=== PATIENT | female | born 1950 | race Caucasian/White ===

== ENCOUNTER 2018-06-17 16:24 | Inpatient (IN) | payer MEDICARE ==
[~2018-06-17] VITALS: Ht 162.6 cm; Wt 128.4 kg
[2018-06-17] MEDS ORDERED: ACET650S27 PO (16:57)
[2018-06-17] MEDS ORDERED: ASPI-1159 PO (16:58)
[2018-06-17] MEDS ORDERED: ATOR40TA70 PO (16:59)
[2018-06-17] MEDS ORDERED: CITA10TA9 PO (17:00)
[2018-06-17] MEDS ORDERED: BO1 TP (17:00)
[2018-06-17] MEDS ORDERED: DOCU-150 PO (17:01)
[2018-06-17] MEDS ORDERED: FAMO40TA7 PO (17:02)
[2018-06-17] MEDS ORDERED: HJ10 IJ (17:03)
[2018-06-17] MEDS ORDERED: LEVVL SQ (17:04)
[2018-06-17] MEDS ORDERED: IPRA3AMP31 IH (17:07)
[2018-06-17] MEDS ORDERED: LAMO300T2 PO (17:08)
[2018-06-17] MEDS ORDERED: LOSA50TA20 PO (17:12)
[2018-06-17] MEDS ORDERED: METH1TAB33 PO (17:13)
[2018-06-17] MEDS ORDERED: METH16TA3 IVP (17:14)
[2018-06-17] MEDS ORDERED: MIRA50TA PO (17:15)
[2018-06-17] MEDS ORDERED: CLONIDINE 0.1MG TABLET PO PRN (17:15)
[2018-06-17] MEDS ORDERED: DOCUSATE SODIUM 100MG CAPSULE PO PRN (17:15)
[2018-06-17] MEDS ORDERED: NYST15PO4 TP (17:17)
[2018-06-17] MEDS ORDERED: MULT1TAB22 PO (17:17)
[2018-06-17] MEDS ORDERED: TROS20TA3 PO (17:18)
[2018-06-17] MEDS ORDERED: RISP4TAB16 PO (17:22)
[2018-06-17] MEDS ORDERED: SENN8.8S8 PO (17:23)
[2018-06-17] MEDS ORDERED: SILD20TA PO (17:25)
[2018-06-17] MEDS ORDERED: THEO80SO7 PO (17:26)
[2018-06-17] MEDS ORDERED: ZINC113O4 TP (17:27)
[2018-06-17 18:33] VITALS: BP 118/70
[2018-06-17 20:00] VITALS: BP 104/59
[2018-06-17] MEDS ORDERED: FAMOTIDINE 20MG TABLET PO NR (21:00)
[2018-06-17 21:03] LABS: CLARITY URINE CLEAR (CLEAR); COLOR URINE YELLOW (YELLOW); KETONES URINE NEGATIVE (NEGATIVE); LEUKOCYTE ESTERASE URINE TRACE (NEGATIVE); NITRITE URINE NEGATIVE (NEGATIVE); OCCULT BLOOD URINE NEGATIVE (NEGATIVE); PROTEIN URINE 1+ (NEGATIVE); SPECIFIC GRAVITY URINE 1.015 (1.005-1.030); UROBILINOGEN URINE 0.2 E.U./dL (0.2-1.0)
[2018-06-17] MEDS: ACETAMINOPHEN 325MG TABLET PO PRN (21:33)
[2018-06-17] MEDS: ATORVASTATIN CALCIUM 40MG TABLET PO SCH (21:33)
[2018-06-17] MEDS: THEOPHYLLINE ANHYDROUS 80 MG/15 ML 120ML PO SCH (21:35)
[2018-06-17] MEDS ORDERED: DEXTROSE 50% WATER 50ML SYRINGE IV PRN (21:45)
[2018-06-17] MEDS: SILDENAFIL CITRATE 20MG TABLET PO SCH (21:52)
[2018-06-17] MEDS: BLOOD SUGAR DIAGNOSTIC STRIP TEST SCH (21:53)
[2018-06-17] MEDS: INSULIN LISPRO 100 UNITS/ML SUBCUT SCH (21:54)
[2018-06-17] MEDS ORDERED: INSULIN GLARGINE UD 100 UNITS/ML SYR SUBCUT SCH (22:00)
[2018-06-17] MEDS ORDERED: RISPERIDONE 1MG TABLET PO SCH (22:00)
[2018-06-17] MEDS: RISPERIDONE 1MG TABLET PO SCH (22:39)
[2018-06-18] MEDS: BLOOD SUGAR DIAGNOSTIC STRIP TEST SCH ×4 (05:55→20:51)
[2018-06-18 06:19] LABS: HEMATOCRIT. 32.8 % (36.0-48.0); HEMOGLOBIN. 11.1 g/dL (12.0-16.0); MEAN CORPUSCULAR HEMOGLOBIN 32.7 pg (28.0-32.0); MEAN CORPUSCULAR VOLUME 96.6 fL (81.0-99.0); MEAN PLATELET VOLUME 8.3 fl (7.4-10.4); PLATELET 196 x1000/uL (130-400); RED CELL DISTRIBUTION WIDTH 15.6 % (11.6-14.6)
[2018-06-18 06:24] LABS: CHLORIDE 97 mEq/L (98-107)
[2018-06-18] MEDS ORDERED: BLOOD SUGAR DIAGNOSTIC STRIP TEST SCH (06:30)
[2018-06-18] MEDS: INSULIN LISPRO 100 UNITS/ML SUBCUT SCH ×4 (06:37→20:46)
[2018-06-18] MEDS: SILDENAFIL CITRATE 20MG TABLET PO SCH ×3 (06:38→20:50)
[2018-06-18] MEDS: THEOPHYLLINE ANHYDROUS 80 MG/15 ML 120ML PO SCH ×3 (06:39→21:05)
[2018-06-18 08:00] VITALS: BP 126/85
[2018-06-18] MEDS ORDERED: INSULIN LISPRO 100 UNITS/ML SUBCUT SCH (09:00)
[2018-06-18] MEDS: LIDOCAINE 5% PATCH TOP SCH (09:00)
[2018-06-18] MEDS: DOCUSATE SODIUM 100MG CAPSULE PO SCH ×2 (09:00→17:00)
[2018-06-18] MEDS ORDERED: PREDNISONE 20MG TABLET PO SCH (09:00)
[2018-06-18] MEDS: CITALOPRAM HYDROBROMIDE 10MG TABLET PO SCH (09:44)
[2018-06-18] MEDS: LOSARTAN POTASSIUM 50 MG TABLET PO SCH (09:45)
[2018-06-18] MEDS: ASPIRIN 81MG TABLET PO SCH (09:45)
[2018-06-18] MEDS: MULTIVITAMINS,THER W-MINERALS TABLET PO SCH (09:46)
[2018-06-18] MEDS: LAMOTRIGINE 150MG TABLET PO SCH (09:46)
[2018-06-18] MEDS: FAMOTIDINE 20MG TABLET PO SCH ×2 (09:46→20:49)
[2018-06-18 10:27] LABS: PLATELET ESTIMATE NORMAL
[2018-06-18] MEDS ORDERED: FUROSEMIDE 20MG TABLET PO NR (12:45)
[2018-06-18] MEDS: INSULIN GLARGINE UD 100 UNITS/ML SYR SUBCUT SCH ×2 (12:49→21:04)
[2018-06-18] MEDS: NYSTATIN POWDER 15GM TOP SCH ×2 (17:00→18:00)
[2018-06-18 20:00] VITALS: BP 137/71
[2018-06-18] MEDS: TRAMADOL 50MG TABLET PO PRN (20:48)
[2018-06-18] MEDS: ATORVASTATIN CALCIUM 40MG TABLET PO SCH (20:48)
[2018-06-18] MEDS: LORAZEPAM 0.5MG TABLET PO PRN (20:49)
[2018-06-18] MEDS: RISPERIDONE 1MG TABLET PO SCH (20:49)
[2018-06-19] MEDS: BLOOD SUGAR DIAGNOSTIC STRIP TEST SCH ×4 (06:00→21:21)
[2018-06-19] MEDS: SILDENAFIL CITRATE 20MG TABLET PO SCH ×3 (06:00→21:21)
[2018-06-19] MEDS: THEOPHYLLINE ANHYDROUS 80 MG/15 ML 120ML PO SCH ×3 (06:00→21:22)
[2018-06-19 06:38] LABS: HEMATOCRIT. 31.8 % (36.0-48.0); HEMOGLOBIN. 10.9 g/dL (12.0-16.0); MEAN CORPUSCULAR HEMOGLOBIN 33.1 pg (28.0-32.0); MEAN CORPUSCULAR VOLUME 96.4 fL (81.0-99.0); MEAN PLATELET VOLUME 7.6 fl (7.4-10.4); PLATELET 191 x1000/uL (130-400); RED CELL DISTRIBUTION WIDTH 15.4 % (11.6-14.6)
[2018-06-19 06:58] LABS: FERRITIN 92 ng/mL (10-291)
[2018-06-19 07:02] LABS: CHLORIDE 97 mEq/L (98-107)
[2018-06-19 07:07] LABS: PHOSPHORUS 4.4 mg/dL (2.5-4.9)
[2018-06-19 07:08] LABS: LDL CHOLESTEROL 72 mg/dL (5-100)
[2018-06-19 07:09] LABS: HDL CHOLESTEROL 66 mg/dL (40-59); TOTAL IRON BINDING CAPACITY 258 ug/dL (250-450)
[2018-06-19] MEDS ORDERED: POTASSIUM CHLORIDE 20MEQ TABLET SR PO NR (08:00)
[2018-06-19] MEDS: INSULIN LISPRO 100 UNITS/ML SUBCUT SCH ×4 (08:01→21:31)
[2018-06-19 08:13] LABS: VITAMIN B12 SERUM 1618 pg/mL (211-911)
[2018-06-19 08:17] VITALS: BP 120/63
[2018-06-19 08:22] LABS: FOLIC ACID (FOLATE) SERUM > 20.00 ng/mL (>5.38)
[2018-06-19 08:33] LABS: PLATELET ESTIMATE NORMAL
[2018-06-19] MEDS: LAMOTRIGINE 150MG TABLET PO SCH (08:36)
[2018-06-19] MEDS: ASPIRIN 81MG TABLET PO SCH (08:37)
[2018-06-19] MEDS: DOCUSATE SODIUM 100MG CAPSULE PO SCH ×2 (08:37→11:12)
[2018-06-19] MEDS: CITALOPRAM HYDROBROMIDE 10MG TABLET PO SCH (08:37)
[2018-06-19] MEDS: MULTIVITAMINS,THER W-MINERALS TABLET PO SCH (08:37)
[2018-06-19] MEDS: FUROSEMIDE 20MG TABLET PO SCH (08:37)
[2018-06-19] MEDS: PREDNISONE 20MG TABLET PO SCH (08:37)
[2018-06-19] MEDS: LOSARTAN POTASSIUM 50 MG TABLET PO SCH (08:37)
[2018-06-19] MEDS: FAMOTIDINE 20MG TABLET PO SCH ×2 (08:37→21:21)
[2018-06-19] MEDS: NYSTATIN POWDER 15GM TOP SCH ×5 (08:38→17:00)
[2018-06-19] MEDS: LIDOCAINE 5% PATCH TOP SCH (08:38)
[2018-06-19] MEDS: ACETAMINOPHEN 325MG TABLET PO PRN ×2 (08:46→22:25)
[2018-06-19] MEDS: BUDESONIDE 0.5MG/2ML NEB HHN SCH (09:55)
[2018-06-19] MEDS ORDERED: MAGNESIUM OXIDE 400MG TABLET PO NR (10:15)
[2018-06-19] MEDS ORDERED: MAGNESIUM 2 G PREMIX 50 ML IV ONE (10:15)
[2018-06-19] MEDS: INSULIN GLARGINE UD 100 UNITS/ML SYR SUBCUT SCH ×2 (10:29→21:22)
[2018-06-19] MEDS: MYRBETRIQ 50 MG PO SCH (17:00)
[2018-06-19 20:00] VITALS: BP 104/55
[2018-06-19] MEDS: MUPIROCIN 2% OINT 22GM NS SCH (21:20)
[2018-06-19] MEDS: RISPERIDONE 1MG TABLET PO SCH (21:21)
[2018-06-19] MEDS: ATORVASTATIN CALCIUM 40MG TABLET PO SCH (21:21)
[2018-06-19] MEDS: LORAZEPAM 0.5MG TABLET PO PRN (23:02)
[2018-06-20] MEDS: THEOPHYLLINE ANHYDROUS 80 MG/15 ML 120ML PO SCH ×3 (06:00→21:34)
[2018-06-20] MEDS: BLOOD SUGAR DIAGNOSTIC STRIP TEST SCH ×4 (06:59→21:33)
[2018-06-20] MEDS: SILDENAFIL CITRATE 20MG TABLET PO SCH ×3 (06:59→21:00)
[2018-06-20] MEDS: INSULIN LISPRO 100 UNITS/ML SUBCUT SCH ×4 (07:00→21:48)
[2018-06-20 08:00] VITALS: BP 134/62
[2018-06-20] MEDS: LIDOCAINE 5% PATCH TOP SCH (09:00)
[2018-06-20] MEDS: IPRATROPIUM/ALBUTEROL 0.5-3(2.5)MG/3ML NEB INH PRN ×2 (09:16→20:05)
[2018-06-20] MEDS: BUDESONIDE 0.5MG/2ML NEB HHN SCH ×2 (09:17→20:05)
[2018-06-20] MEDS: MUPIROCIN 2% OINT 22GM NS SCH ×2 (09:34→21:00)
[2018-06-20] MEDS: MYRBETRIQ 50 MG PO SCH (09:34)
[2018-06-20] MEDS: DOCUSATE SODIUM 100MG CAPSULE PO SCH ×2 (09:35→16:58)
[2018-06-20] MEDS: CITALOPRAM HYDROBROMIDE 10MG TABLET PO SCH (09:35)
[2018-06-20] MEDS: ASPIRIN 81MG TABLET PO SCH (09:35)
[2018-06-20] MEDS: NYSTATIN POWDER 15GM TOP SCH ×5 (09:35→16:58)
[2018-06-20] MEDS: FAMOTIDINE 20MG TABLET PO SCH ×2 (09:35→21:00)
[2018-06-20] MEDS: PREDNISONE 20MG TABLET PO SCH (09:35)
[2018-06-20] MEDS: LOSARTAN POTASSIUM 50 MG TABLET PO SCH (09:35)
[2018-06-20] MEDS: MULTIVITAMINS,THER W-MINERALS TABLET PO SCH (09:35)
[2018-06-20] MEDS: LAMOTRIGINE 150MG TABLET PO SCH (09:35)
[2018-06-20] MEDS: FUROSEMIDE 20MG TABLET PO SCH (09:36)
[2018-06-20] MEDS: INSULIN GLARGINE UD 100 UNITS/ML SYR SUBCUT SCH ×2 (10:20→21:48)
[2018-06-20 12:25] VITALS: BP_SYST 101; BP_SYST 107; BP_SYST 132; BP_DIAS 55; BP_DIAS 56; BP_DIAS 64
[2018-06-20 20:00] VITALS: BP_SYST 111; BP_DIAS 52; BP_DIAS 56
[2018-06-20] MEDS: RISPERIDONE 1MG TABLET PO SCH (20:59)
[2018-06-20] MEDS: ATORVASTATIN CALCIUM 40MG TABLET PO SCH (21:00)
[2018-06-20] MEDS: ENOXAPARIN 40MG/0.4ML SYR SUBCUT SCH (21:00)
[2018-06-20] MEDS: ACETAMINOPHEN 325MG TABLET PO PRN (21:01)
[2018-06-20] MEDS: LORAZEPAM 0.5MG TABLET PO PRN (22:29)
[2018-06-21] MEDS: THEOPHYLLINE ANHYDROUS 80 MG/15 ML 120ML PO SCH ×3 (05:33→21:40)
[2018-06-21] MEDS: SILDENAFIL CITRATE 20MG TABLET PO SCH ×3 (05:33→21:40)
[2018-06-21] MEDS: BLOOD SUGAR DIAGNOSTIC STRIP TEST SCH ×4 (06:24→22:00)
[2018-06-21] MEDS: INSULIN LISPRO 100 UNITS/ML SUBCUT SCH ×4 (06:24→22:10)
[2018-06-21 07:44] LABS: HEMATOCRIT. 29.6 % (36.0-48.0); MEAN CORPUSCULAR HEMOGLOBIN 32.8 pg (28.0-32.0); MEAN CORPUSCULAR VOLUME 96.9 fL (81.0-99.0); MEAN PLATELET VOLUME 7.9 fl (7.4-10.4); PLATELET 189 x1000/uL (130-400); RED BLOOD CELL COUNT 3.05 mill/uL (4.2-5.4); RED CELL DISTRIBUTION WIDTH 15.2 % (11.6-14.6)
[2018-06-21 07:56] LABS: CHLORIDE 95 mEq/L (98-107)
[2018-06-21 08:05] LABS: PHOSPHORUS 3.7 mg/dL (2.5-4.9)
[2018-06-21 08:24] VITALS: BP_SYST 89; BP_SYST 99; BP_DIAS 50; BP_DIAS 52
[2018-06-21] MEDS: FUROSEMIDE 20MG TABLET PO SCH (08:29)
[2018-06-21] MEDS: LOSARTAN POTASSIUM 50 MG TABLET PO SCH (08:29)
[2018-06-21] MEDS: DOCUSATE SODIUM 100MG CAPSULE PO SCH ×2 (08:33→17:24)
[2018-06-21] MEDS: LIDOCAINE 5% PATCH TOP SCH (08:33)
[2018-06-21] MEDS: NYSTATIN POWDER 15GM TOP SCH ×2 (09:00→17:31)
[2018-06-21] MEDS: MYRBETRIQ 50 MG PO SCH (09:46)
[2018-06-21] MEDS: MUPIROCIN 2% OINT 22GM NS SCH ×2 (09:46→21:42)
[2018-06-21] MEDS: ASPIRIN 81MG TABLET PO SCH (09:47)
[2018-06-21] MEDS: CITALOPRAM HYDROBROMIDE 10MG TABLET PO SCH (09:47)
[2018-06-21] MEDS: LAMOTRIGINE 150MG TABLET PO SCH (09:47)
[2018-06-21] MEDS: PREDNISONE 20MG TABLET PO SCH (09:47)
[2018-06-21] MEDS: FAMOTIDINE 20MG TABLET PO SCH ×2 (09:47→21:24)
[2018-06-21] MEDS: MULTIVITAMINS,THER W-MINERALS TABLET PO SCH (09:47)
[2018-06-21] MEDS: ENOXAPARIN 40MG/0.4ML SYR SUBCUT SCH ×2 (09:48→21:25)
[2018-06-21] MEDS: IPRATROPIUM/ALBUTEROL 0.5-3(2.5)MG/3ML NEB INH PRN (09:55)
[2018-06-21] MEDS: POTASSIUM CHLORIDE 20MEQ TABLET SR PO SCH (10:11)
[2018-06-21] MEDS: ACETAMINOPHEN 325MG TABLET PO PRN ×2 (10:11→21:24)
[2018-06-21] MEDS: INSULIN GLARGINE UD 100 UNITS/ML SYR SUBCUT SCH ×2 (11:06→22:09)
[2018-06-21 20:00] VITALS: BP_SYST 147; BP_SYST 157; BP_DIAS 71; BP_DIAS 79
[2018-06-21 21:14] LABS: PLATELET ESTIMATE NORMAL
[2018-06-21] MEDS: RISPERIDONE 1MG TABLET PO SCH (21:24)
[2018-06-21] MEDS: ATORVASTATIN CALCIUM 40MG TABLET PO SCH (21:24)
[2018-06-21] MEDS: LORAZEPAM 0.5MG TABLET PO PRN (22:16)
[2018-06-22 06:07] LABS: HEMATOCRIT. 29.6 % (36.0-48.0); HEMOGLOBIN. 10.1 g/dL (12.0-16.0); MEAN CORPUSCULAR HEMOGLOBIN 32.8 pg (28.0-32.0); MEAN CORPUSCULAR VOLUME 96.5 fL (81.0-99.0); MEAN PLATELET VOLUME 7.5 fl (7.4-10.4); PLATELET 201 x1000/uL (130-400); RED BLOOD CELL COUNT 3.07 mill/uL (4.2-5.4); RED CELL DISTRIBUTION WIDTH 14.9 % (11.6-14.6)
[2018-06-22] MEDS: THEOPHYLLINE ANHYDROUS 80 MG/15 ML 120ML PO SCH ×3 (06:25→22:56)
[2018-06-22] MEDS: SILDENAFIL CITRATE 20MG TABLET PO SCH ×3 (06:25→22:31)
[2018-06-22] MEDS: BLOOD SUGAR DIAGNOSTIC STRIP TEST SCH ×4 (06:49→21:00)
[2018-06-22] MEDS: BUDESONIDE 0.5MG/2ML NEB HHN SCH ×2 (07:17→20:49)
[2018-06-22 07:24] LABS: CHLORIDE 99 mEq/L (98-107)
[2018-06-22 08:00] VITALS: BP_SYST 110; BP_SYST 126; BP_DIAS 50; BP_DIAS 53
[2018-06-22] MEDS: LIDOCAINE 5% PATCH TOP SCH (09:00)
[2018-06-22] MEDS: INSULIN LISPRO 100 UNITS/ML SUBCUT SCH ×4 (09:00→21:00)
[2018-06-22] MEDS: POTASSIUM CHLORIDE 20MEQ TABLET SR PO SCH (09:50)
[2018-06-22] MEDS: LAMOTRIGINE 150MG TABLET PO SCH (09:50)
[2018-06-22] MEDS: CITALOPRAM HYDROBROMIDE 10MG TABLET PO SCH (09:50)
[2018-06-22] MEDS: LOSARTAN POTASSIUM 50 MG TABLET PO SCH (09:50)
[2018-06-22] MEDS: FAMOTIDINE 20MG TABLET PO SCH ×2 (09:50→22:31)
[2018-06-22] MEDS: MULTIVITAMINS,THER W-MINERALS TABLET PO SCH (09:50)
[2018-06-22] MEDS: FUROSEMIDE 20MG TABLET PO SCH (09:50)
[2018-06-22] MEDS: DOCUSATE SODIUM 100MG CAPSULE PO SCH ×2 (09:51→17:40)
[2018-06-22] MEDS: MYRBETRIQ 50 MG PO SCH (09:51)
[2018-06-22] MEDS: ASPIRIN 81MG TABLET PO SCH (09:51)
[2018-06-22] MEDS: ENOXAPARIN 40MG/0.4ML SYR SUBCUT SCH ×2 (09:51→23:32)
[2018-06-22] MEDS: MUPIROCIN 2% OINT 22GM NS SCH ×2 (09:52→22:54)
[2018-06-22] MEDS: NYSTATIN POWDER 15GM TOP SCH ×2 (09:52→17:49)
[2018-06-22] MEDS: PREDNISONE 20MG TABLET PO SCH (09:52)
[2018-06-22] MEDS ORDERED: POTASSIUM CHLORIDE 20MEQ TABLET SR PO SCH (11:15)
[2018-06-22 12:07] LABS: PLATELET ESTIMATE NORMAL
[2018-06-22] MEDS: INSULIN GLARGINE UD 100 UNITS/ML SYR SUBCUT SCH (12:19)
[2018-06-22] MEDS ORDERED: TRAMADOL 50MG TABLET PO PRN (12:45)
[2018-06-22] MEDS: LACTULOSE 20G/30ML UDC PO SCH ×3 (14:30→21:00)
[2018-06-22] MEDS: CEFTRIAXONE 1 G PREMIX 50 ML IV SCH (14:46)
[2018-06-22] MEDS ORDERED: DOCUSATE SODIUM 100MG CAPSULE PO SCH (17:00)
[2018-06-22 20:00] VITALS: BP 130/59
[2018-06-22] MEDS: POLYETHYLENE GLYCOL 3350 (17GM) 1 DOSE PACK PO SCH (21:00)
[2018-06-22] MEDS ORDERED: INSULIN GLARGINE UD 100 UNITS/ML SYR SUBCUT SCH (22:00)
[2018-06-22] MEDS: ACETAMINOPHEN 325MG TABLET PO PRN ×2 (22:29→23:43)
[2018-06-22] MEDS: ATORVASTATIN CALCIUM 40MG TABLET PO SCH (22:31)
[2018-06-22] MEDS: RISPERIDONE 1MG TABLET PO SCH (22:55)
[2018-06-23 04:10] LABS: 25-HYDROXY VITAMIN D3 32 ng/mL (.)
[2018-06-23 05:23] LABS: HEMATOCRIT. 29.7 % (36.0-48.0); HEMOGLOBIN. 10.3 g/dL (12.0-16.0); MEAN CORPUSCULAR HEMOGLOBIN 33.5 pg (28.0-32.0); MEAN PLATELET VOLUME 8.9 fl (7.4-10.4); PLATELET 194 x1000/uL (130-400); RED BLOOD CELL COUNT 3.06 mill/uL (4.2-5.4); RED CELL DISTRIBUTION WIDTH 15.2 % (11.6-14.6)
[2018-06-23] MEDS: THEOPHYLLINE ANHYDROUS 80 MG/15 ML 120ML PO SCH ×3 (06:00→22:57)
[2018-06-23] MEDS: BLOOD SUGAR DIAGNOSTIC STRIP TEST SCH ×4 (06:56→21:00)
[2018-06-23] MEDS: SILDENAFIL CITRATE 20MG TABLET PO SCH ×3 (07:05→22:44)
[2018-06-23 07:10] LABS: CHLORIDE 98 mEq/L (98-107)
[2018-06-23] MEDS: BUDESONIDE 0.5MG/2ML NEB HHN SCH ×2 (07:17→20:18)
[2018-06-23] MEDS: IPRATROPIUM/ALBUTEROL 0.5-3(2.5)MG/3ML NEB INH PRN (07:17)
[2018-06-23 08:00] VITALS: BP 107/37
[2018-06-23] MEDS: INSULIN LISPRO 100 UNITS/ML SUBCUT SCH ×4 (09:00→22:56)
[2018-06-23] MEDS: LIDOCAINE 5% PATCH TOP SCH ×2 (09:00→09:40)
[2018-06-23] MEDS ORDERED: PREDNISONE 20MG TABLET PO SCH (09:00)
[2018-06-23] MEDS: CITALOPRAM HYDROBROMIDE 10MG TABLET PO SCH (09:27)
[2018-06-23] MEDS: POTASSIUM CHLORIDE 20MEQ TABLET SR PO SCH (09:27)
[2018-06-23] MEDS: MULTIVITAMINS,THER W-MINERALS TABLET PO SCH (09:27)
[2018-06-23] MEDS: DOCUSATE SODIUM 100MG CAPSULE PO SCH ×2 (09:27→17:00)
[2018-06-23] MEDS: FUROSEMIDE 20MG TABLET PO SCH (09:28)
[2018-06-23] MEDS: LAMOTRIGINE 150MG TABLET PO SCH (09:28)
[2018-06-23] MEDS: FAMOTIDINE 20MG TABLET PO SCH ×2 (09:29→22:43)
[2018-06-23] MEDS: ENOXAPARIN 40MG/0.4ML SYR SUBCUT SCH ×2 (09:29→22:43)
[2018-06-23] MEDS: LOSARTAN POTASSIUM 50 MG TABLET PO SCH (09:29)
[2018-06-23] MEDS: MUPIROCIN 2% OINT 22GM NS SCH ×2 (09:40→17:11)
[2018-06-23] MEDS: NYSTATIN POWDER 15GM TOP SCH ×2 (09:40→17:12)
[2018-06-23] MEDS: ASPIRIN 81MG TABLET PO SCH (09:41)
[2018-06-23] MEDS: MYRBETRIQ 50 MG PO SCH (09:41)
[2018-06-23] MEDS ORDERED: INSULIN GLARGINE UD 100 UNITS/ML SYR SUBCUT SCH (10:00)
[2018-06-23 10:31] LABS: NUCLEATED RED BLOOD CELLS 1 /100 WBC; PLATELET ESTIMATE NORMAL
[2018-06-23] MEDS: CEFTRIAXONE 1 G PREMIX 50 ML IV SCH (13:23)
[2018-06-23] MEDS ORDERED: ERGOCALCIFEROL 50000UNITS CAPSULE PO SCH (16:30)
[2018-06-23] MEDS: TROSPIUM CHLORIDE 20 MG TABLET PO SCH (17:11)
[2018-06-23] MEDS: METHENAMINE HIPPURATE 1 GM TABLET PO SCH (17:12)
[2018-06-23 20:00] VITALS: BP 133/52
[2018-06-23] MEDS: POLYETHYLENE GLYCOL 3350 (17GM) 1 DOSE PACK PO SCH (21:00)
[2018-06-23] MEDS: ATORVASTATIN CALCIUM 40MG TABLET PO SCH (22:43)
[2018-06-23] MEDS: RISPERIDONE 1MG TABLET PO SCH (22:44)
[2018-06-23] MEDS: TRAMADOL 50MG TABLET PO PRN (22:46)
[2018-06-23] MEDS: INSULIN GLARGINE UD 100 UNITS/ML SYR SUBCUT SCH (22:57)
[2018-06-23] MEDS: ACETAMINOPHEN 325MG TABLET PO PRN (23:18)
[2018-06-24 06:23] LABS: HEMATOCRIT. 31.4 % (36.0-48.0); HEMOGLOBIN. 10.7 g/dL (12.0-16.0); MEAN CORPUSCULAR HEMOGLOBIN 33.1 pg (28.0-32.0); MEAN CORPUSCULAR VOLUME 97.2 fL (81.0-99.0); MEAN PLATELET VOLUME 7.7 fl (7.4-10.4); PLATELET 219 x1000/uL (130-400); RED BLOOD CELL COUNT 3.23 mill/uL (4.2-5.4); RED CELL DISTRIBUTION WIDTH 15.1 % (11.6-14.6)
[2018-06-24] MEDS: BLOOD SUGAR DIAGNOSTIC STRIP TEST SCH ×4 (06:30→21:02)
[2018-06-24 06:52] LABS: CHLORIDE 97 mEq/L (98-107)
[2018-06-24] MEDS: SILDENAFIL CITRATE 20MG TABLET PO SCH ×3 (06:59→21:38)
[2018-06-24] MEDS: THEOPHYLLINE ANHYDROUS 80 MG/15 ML 120ML PO SCH ×3 (07:04→22:27)
[2018-06-24] MEDS: BUDESONIDE 0.5MG/2ML NEB HHN SCH ×2 (07:42→21:38)
[2018-06-24] MEDS: IPRATROPIUM/ALBUTEROL 0.5-3(2.5)MG/3ML NEB INH PRN (07:42)
[2018-06-24 08:00] VITALS: BP 132/62
[2018-06-24] MEDS: DOCUSATE SODIUM 100MG CAPSULE PO SCH ×2 (08:29→17:36)
[2018-06-24] MEDS: ASPIRIN 81MG TABLET PO SCH (08:29)
[2018-06-24] MEDS: CITALOPRAM HYDROBROMIDE 10MG TABLET PO SCH (08:29)
[2018-06-24] MEDS: LOSARTAN POTASSIUM 50 MG TABLET PO SCH (08:29)
[2018-06-24] MEDS: POTASSIUM CHLORIDE 20MEQ TABLET SR PO SCH (08:29)
[2018-06-24] MEDS: FAMOTIDINE 20MG TABLET PO SCH ×2 (08:29→21:01)
[2018-06-24] MEDS: MULTIVITAMINS,THER W-MINERALS TABLET PO SCH (08:29)
[2018-06-24] MEDS: ENOXAPARIN 40MG/0.4ML SYR SUBCUT SCH ×2 (08:29→21:02)
[2018-06-24] MEDS: FUROSEMIDE 20MG TABLET PO SCH (08:30)
[2018-06-24] MEDS: LAMOTRIGINE 150MG TABLET PO SCH (08:30)
[2018-06-24] MEDS: NYSTATIN POWDER 15GM TOP SCH ×2 (08:31→17:37)
[2018-06-24] MEDS: METHENAMINE HIPPURATE 1 GM TABLET PO SCH ×2 (08:31→17:37)
[2018-06-24] MEDS: MYRBETRIQ 50 MG PO SCH (08:31)
[2018-06-24] MEDS: MUPIROCIN 2% OINT 22GM NS SCH (08:31)
[2018-06-24] MEDS: TROSPIUM CHLORIDE 20 MG TABLET PO SCH ×2 (08:32→17:36)
[2018-06-24] MEDS: LIDOCAINE 5% PATCH TOP SCH (09:00)
[2018-06-24] MEDS: INSULIN LISPRO 100 UNITS/ML SUBCUT SCH ×3 (09:00→21:00)
[2018-06-24 09:20] LABS: PLATELET ESTIMATE NORMAL
[2018-06-24] MEDS: INSULIN GLARGINE UD 100 UNITS/ML SYR SUBCUT SCH ×2 (10:39→22:20)
[2018-06-24 14:00] VITALS: BP 153/72
[2018-06-24] MEDS: CEFTRIAXONE 1 G PREMIX 50 ML IV SCH (14:35)
[2018-06-24 20:00] VITALS: BP 116/86
[2018-06-24] MEDS: POLYETHYLENE GLYCOL 3350 (17GM) 1 DOSE PACK PO SCH (21:00)
[2018-06-24] MEDS: ATORVASTATIN CALCIUM 40MG TABLET PO SCH (21:00)
[2018-06-24] MEDS: RISPERIDONE 1MG TABLET PO SCH (21:01)
[2018-06-24] MEDS: ACETAMINOPHEN 325MG TABLET PO PRN ×2 (21:38→22:29)
[2018-06-25] MEDS: SILDENAFIL CITRATE 20MG TABLET PO SCH ×3 (05:42→22:15)
[2018-06-25] MEDS: THEOPHYLLINE ANHYDROUS 80 MG/15 ML 120ML PO SCH ×3 (05:43→22:42)
[2018-06-25 06:01] LABS: CLARITY URINE CLEAR (CLEAR); COLOR URINE YELLOW (YELLOW); KETONES URINE NEGATIVE (NEGATIVE); LEUKOCYTE ESTERASE URINE NEGATIVE (NEGATIVE); NITRITE URINE NEGATIVE (NEGATIVE); OCCULT BLOOD URINE NEGATIVE (NEGATIVE); PH URINE 5.5 (4.5-8.0); PROTEIN URINE NEGATIVE (NEGATIVE); SPECIFIC GRAVITY URINE 1.006 (1.005-1.030); UROBILINOGEN URINE 0.2 E.U./dL (0.2-1.0)
[2018-06-25 06:49] LABS: HEMATOCRIT. 31.5 % (36.0-48.0); HEMOGLOBIN. 10.5 g/dL (12.0-16.0); MEAN CORPUSCULAR HEMOGLOBIN 32.7 pg (28.0-32.0); MEAN CORPUSCULAR VOLUME 97.8 fL (81.0-99.0); MEAN PLATELET VOLUME 7.7 fl (7.4-10.4); PLATELET 214 x1000/uL (130-400); RED BLOOD CELL COUNT 3.22 mill/uL (4.2-5.4); RED CELL DISTRIBUTION WIDTH 15.1 % (11.6-14.6)
[2018-06-25 06:51] LABS: CHLORIDE 95 mEq/L (98-107)
[2018-06-25] MEDS: BLOOD SUGAR DIAGNOSTIC STRIP TEST SCH ×4 (07:18→21:00)
[2018-06-25] MEDS: INSULIN LISPRO 100 UNITS/ML SUBCUT SCH ×4 (07:23→21:00)
[2018-06-25 07:59] VITALS: BP 138/74
[2018-06-25] MEDS ORDERED: POTASSIUM CHLORIDE 20MEQ TABLET SR PO NR (08:15)
[2018-06-25] MEDS: MYRBETRIQ 50 MG PO SCH (08:38)
[2018-06-25] MEDS: METHENAMINE HIPPURATE 1 GM TABLET PO SCH ×2 (08:38→16:54)
[2018-06-25] MEDS: ENOXAPARIN 40MG/0.4ML SYR SUBCUT SCH ×2 (08:39→22:16)
[2018-06-25] MEDS: FAMOTIDINE 20MG TABLET PO SCH ×2 (08:40→22:14)
[2018-06-25] MEDS: POTASSIUM CHLORIDE 20MEQ TABLET SR PO SCH (08:40)
[2018-06-25] MEDS: ASPIRIN 81MG TABLET PO SCH (08:40)
[2018-06-25] MEDS: CITALOPRAM HYDROBROMIDE 10MG TABLET PO SCH (08:40)
[2018-06-25] MEDS: DOCUSATE SODIUM 100MG CAPSULE PO SCH ×2 (08:40→17:00)
[2018-06-25] MEDS: FUROSEMIDE 20MG TABLET PO SCH (08:40)
[2018-06-25] MEDS: LAMOTRIGINE 150MG TABLET PO SCH (08:40)
[2018-06-25] MEDS: MULTIVITAMINS,THER W-MINERALS TABLET PO SCH (08:40)
[2018-06-25] MEDS: LOSARTAN POTASSIUM 50 MG TABLET PO SCH (08:40)
[2018-06-25] MEDS: LIDOCAINE 5% PATCH TOP SCH (08:41)
[2018-06-25] MEDS: NYSTATIN POWDER 15GM TOP SCH ×2 (08:43→16:53)
[2018-06-25] MEDS: TROSPIUM CHLORIDE 20 MG TABLET PO SCH ×2 (09:00→18:52)
[2018-06-25 09:16] LABS: NUCLEATED RED BLOOD CELLS 1 /100 WBC; PLATELET ESTIMATE NORMAL
[2018-06-25] MEDS: INSULIN GLARGINE UD 100 UNITS/ML SYR SUBCUT SCH ×2 (10:21→22:16)
[2018-06-25] MEDS: BUDESONIDE 0.5MG/2ML NEB HHN SCH (12:02)
[2018-06-25] MEDS: IPRATROPIUM/ALBUTEROL 0.5-3(2.5)MG/3ML NEB INH PRN (12:02)
[2018-06-25] MEDS: CEFTRIAXONE 1 G PREMIX 50 ML IV SCH (13:11)
[2018-06-25] MEDS ORDERED: POTASSIUM CHLORIDE 20MEQ TABLET SR PO SCH (13:30)
[2018-06-25 20:00] VITALS: BP 103/54
[2018-06-25] MEDS: POLYETHYLENE GLYCOL 3350 (17GM) 1 DOSE PACK PO SCH (21:00)
[2018-06-25] MEDS: ATORVASTATIN CALCIUM 40MG TABLET PO SCH (22:14)
[2018-06-25] MEDS: RISPERIDONE 1MG TABLET PO SCH (22:15)
[2018-06-25] MEDS: ACETAMINOPHEN 325MG TABLET PO PRN (22:37)
[2018-06-26] MEDS: BLOOD SUGAR DIAGNOSTIC STRIP TEST SCH ×4 (05:59→21:00)
[2018-06-26] MEDS: THEOPHYLLINE ANHYDROUS 80 MG/15 ML 120ML PO SCH ×3 (06:00→22:00)
[2018-06-26] MEDS: SILDENAFIL CITRATE 20MG TABLET PO SCH ×3 (06:19→22:45)
[2018-06-26] MEDS: INSULIN LISPRO 100 UNITS/ML SUBCUT SCH ×4 (06:20→21:00)
[2018-06-26 07:52] VITALS: BP 110/54
[2018-06-26] MEDS: IPRATROPIUM/ALBUTEROL 0.5-3(2.5)MG/3ML NEB INH PRN (08:34)
[2018-06-26] MEDS: LIDOCAINE 5% PATCH TOP SCH (09:00)
[2018-06-26] MEDS: DOCUSATE SODIUM 100MG CAPSULE PO SCH ×2 (09:00→17:02)
[2018-06-26] MEDS: LOSARTAN POTASSIUM 50 MG TABLET PO SCH (09:00)
[2018-06-26 09:07] LABS: HEMATOCRIT. 30.6 % (36.0-48.0); HEMOGLOBIN. 10.3 g/dL (12.0-16.0); MEAN CORPUSCULAR HEMOGLOBIN 33.2 pg (28.0-32.0); MEAN CORPUSCULAR VOLUME 98.2 fL (81.0-99.0); MEAN PLATELET VOLUME 7.7 fl (7.4-10.4); PLATELET 212 x1000/uL (130-400); RED BLOOD CELL COUNT 3.11 mill/uL (4.2-5.4); RED CELL DISTRIBUTION WIDTH 15.9 % (11.6-14.6)
[2018-06-26 09:20] LABS: CHLORIDE 98 mEq/L (98-107)
[2018-06-26] MEDS: MULTIVITAMINS,THER W-MINERALS TABLET PO SCH (09:22)
[2018-06-26] MEDS: POTASSIUM CHLORIDE 20MEQ TABLET SR PO SCH (09:22)
[2018-06-26] MEDS: FAMOTIDINE 20MG TABLET PO SCH ×2 (09:22→23:28)
[2018-06-26] MEDS: CITALOPRAM HYDROBROMIDE 10MG TABLET PO SCH (09:22)
[2018-06-26] MEDS: FUROSEMIDE 20MG TABLET PO SCH (09:22)
[2018-06-26] MEDS: ASPIRIN 81MG TABLET PO SCH (09:22)
[2018-06-26] MEDS: LAMOTRIGINE 150MG TABLET PO SCH (09:22)
[2018-06-26] MEDS: METHENAMINE HIPPURATE 1 GM TABLET PO SCH ×2 (09:23→17:03)
[2018-06-26] MEDS: MYRBETRIQ 50 MG PO SCH (09:23)
[2018-06-26] MEDS: TROSPIUM CHLORIDE 20 MG TABLET PO SCH ×2 (09:23→17:03)
[2018-06-26 09:25] LABS: PHOSPHORUS 3.8 mg/dL (2.5-4.9)
[2018-06-26 09:32] LABS: PLATELET ESTIMATE NORMAL
[2018-06-26] MEDS: NYSTATIN POWDER 15GM TOP SCH ×2 (09:59→17:04)
[2018-06-26] MEDS: ENOXAPARIN 40MG/0.4ML SYR SUBCUT SCH ×2 (09:59→23:38)
[2018-06-26] MEDS: INSULIN GLARGINE UD 100 UNITS/ML SYR SUBCUT SCH ×2 (10:56→23:22)
[2018-06-26] MEDS: CEFTRIAXONE 1 G PREMIX 50 ML IV SCH (13:04)
[2018-06-26 20:00] VITALS: BP 103/42
[2018-06-26] MEDS: POLYETHYLENE GLYCOL 3350 (17GM) 1 DOSE PACK PO SCH (21:00)
[2018-06-26] MEDS: ATORVASTATIN CALCIUM 40MG TABLET PO SCH (22:45)
[2018-06-26] MEDS: ACETAMINOPHEN 325MG TABLET PO PRN (23:25)
[2018-06-26] MEDS: RISPERIDONE 1MG TABLET PO SCH (23:28)
[2018-06-27] MEDS: SILDENAFIL CITRATE 20MG TABLET PO SCH ×3 (05:30→21:30)
[2018-06-27] MEDS: THEOPHYLLINE ANHYDROUS 80 MG/15 ML 120ML PO SCH ×3 (06:00→22:08)
[2018-06-27] MEDS: BLOOD SUGAR DIAGNOSTIC STRIP TEST SCH ×4 (06:30→21:00)
[2018-06-27 08:44] VITALS: BP 132/62
[2018-06-27] MEDS: INSULIN LISPRO 100 UNITS/ML SUBCUT SCH ×4 (08:50→21:00)
[2018-06-27] MEDS: MULTIVITAMINS,THER W-MINERALS TABLET PO SCH (09:00)
[2018-06-27] MEDS: LIDOCAINE 5% PATCH TOP SCH (09:00)
[2018-06-27] MEDS: ASPIRIN 81MG TABLET PO SCH (09:29)
[2018-06-27] MEDS: FAMOTIDINE 20MG TABLET PO SCH ×2 (09:30→21:21)
[2018-06-27] MEDS: POTASSIUM CHLORIDE 20MEQ TABLET SR PO SCH (09:30)
[2018-06-27] MEDS: FUROSEMIDE 20MG TABLET PO SCH (09:30)
[2018-06-27] MEDS: DOCUSATE SODIUM 100MG CAPSULE PO SCH ×2 (09:30→16:39)
[2018-06-27] MEDS: LAMOTRIGINE 150MG TABLET PO SCH (09:30)
[2018-06-27] MEDS: CITALOPRAM HYDROBROMIDE 10MG TABLET PO SCH (09:30)
[2018-06-27] MEDS: LOSARTAN POTASSIUM 50 MG TABLET PO SCH (09:30)
[2018-06-27] MEDS: ENOXAPARIN 40MG/0.4ML SYR SUBCUT SCH ×2 (09:40→21:22)
[2018-06-27] MEDS: METHENAMINE HIPPURATE 1 GM TABLET PO SCH ×2 (09:44→16:40)
[2018-06-27] MEDS: MYRBETRIQ 50 MG PO SCH (09:45)
[2018-06-27] MEDS: TROSPIUM CHLORIDE 20 MG TABLET PO SCH ×2 (09:46→16:41)
[2018-06-27] MEDS: NYSTATIN POWDER 15GM TOP SCH ×2 (09:47→17:18)
[2018-06-27] MEDS: INSULIN GLARGINE UD 100 UNITS/ML SYR SUBCUT SCH ×2 (10:01→21:23)
[2018-06-27] MEDS: METHYL SALICYLATE/MENTHOL CREAM 85GM TOP SCH ×2 (14:27→17:58)
[2018-06-27] MEDS: CEFTRIAXONE 1 G PREMIX 50 ML IV SCH (14:27)
[2018-06-27] MEDS ORDERED: TRAMADOL 50MG TABLET PO PRN (19:15)
[2018-06-27 20:00] VITALS: BP 92/43
[2018-06-27] MEDS: POLYETHYLENE GLYCOL 3350 (17GM) 1 DOSE PACK PO SCH (21:00)
[2018-06-27] MEDS: RISPERIDONE 1MG TABLET PO SCH (21:21)
[2018-06-27] MEDS: ATORVASTATIN CALCIUM 40MG TABLET PO SCH (21:21)
[2018-06-28] MEDS: METHYL SALICYLATE/MENTHOL CREAM 85GM TOP SCH ×4 (06:00→17:18)
[2018-06-28] MEDS: SILDENAFIL CITRATE 20MG TABLET PO SCH ×3 (06:00→22:39)
[2018-06-28] MEDS: THEOPHYLLINE ANHYDROUS 80 MG/15 ML 120ML PO SCH ×3 (06:50→22:37)
[2018-06-28] MEDS: BLOOD SUGAR DIAGNOSTIC STRIP TEST SCH ×4 (06:50→21:00)
[2018-06-28 06:52] LABS: HEMOGLOBIN. 9.9 g/dL (12.0-16.0); MEAN CORPUSCULAR HEMOGLOBIN 33.4 pg (28.0-32.0); MEAN CORPUSCULAR VOLUME 98.1 fL (81.0-99.0); MEAN PLATELET VOLUME 7.7 fl (7.4-10.4); PLATELET 249 x1000/uL (130-400); RED BLOOD CELL COUNT 2.96 mill/uL (4.2-5.4); RED CELL DISTRIBUTION WIDTH 15.7 % (11.6-14.6)
[2018-06-28 07:17] LABS: CHLORIDE 100 mEq/L (98-107)
[2018-06-28 08:00] VITALS: BP 109/45
[2018-06-28] MEDS ORDERED: POTASSIUM CHLORIDE 20MEQ TABLET SR PO NR (08:00)
[2018-06-28] MEDS: DOCUSATE SODIUM 100MG CAPSULE PO SCH ×2 (08:51→17:00)
[2018-06-28] MEDS: ENOXAPARIN 40MG/0.4ML SYR SUBCUT SCH ×2 (08:51→22:38)
[2018-06-28] MEDS: MULTIVITAMINS,THER W-MINERALS TABLET PO SCH (08:52)
[2018-06-28] MEDS: ASPIRIN 81MG TABLET PO SCH (08:52)
[2018-06-28] MEDS: POTASSIUM CHLORIDE 20MEQ TABLET SR PO SCH (08:52)
[2018-06-28] MEDS: FUROSEMIDE 20MG TABLET PO SCH (08:52)
[2018-06-28] MEDS: FAMOTIDINE 20MG TABLET PO SCH ×2 (08:53→22:27)
[2018-06-28] MEDS: METHENAMINE HIPPURATE 1 GM TABLET PO SCH ×2 (08:53→17:42)
[2018-06-28] MEDS: CITALOPRAM HYDROBROMIDE 10MG TABLET PO SCH (08:53)
[2018-06-28] MEDS: LAMOTRIGINE 150MG TABLET PO SCH (08:53)
[2018-06-28] MEDS: LOSARTAN POTASSIUM 50 MG TABLET PO SCH (08:53)
[2018-06-28] MEDS: TROSPIUM CHLORIDE 20 MG TABLET PO SCH ×2 (08:54→17:43)
[2018-06-28] MEDS: MYRBETRIQ 50 MG PO SCH (08:57)
[2018-06-28] MEDS: INSULIN LISPRO 100 UNITS/ML SUBCUT SCH ×4 (09:00→22:29)
[2018-06-28] MEDS: LIDOCAINE 5% PATCH TOP SCH (09:00)
[2018-06-28] MEDS: NYSTATIN POWDER 15GM TOP SCH ×2 (09:15→17:00)
[2018-06-28 10:52] LABS: PLATELET ESTIMATE NORMAL
[2018-06-28] MEDS: INSULIN GLARGINE UD 100 UNITS/ML SYR SUBCUT SCH ×2 (11:08→22:30)
[2018-06-28] MEDS: CEFTRIAXONE 1 G PREMIX 50 ML IV SCH (12:26)
[2018-06-28 20:00] VITALS: BP 121/63
[2018-06-28] MEDS: POLYETHYLENE GLYCOL 3350 (17GM) 1 DOSE PACK PO SCH (21:00)
[2018-06-28] MEDS: RISPERIDONE 1MG TABLET PO SCH (22:26)
[2018-06-28] MEDS: ATORVASTATIN CALCIUM 40MG TABLET PO SCH (22:26)
[2018-06-28] MEDS: ACETAMINOPHEN 325MG TABLET PO PRN (22:56)
[2018-06-29] MEDS: SILDENAFIL CITRATE 20MG TABLET PO SCH ×3 (05:49→20:59)
[2018-06-29] MEDS: METHYL SALICYLATE/MENTHOL CREAM 85GM TOP SCH ×4 (05:49→18:00)
[2018-06-29] MEDS: THEOPHYLLINE ANHYDROUS 80 MG/15 ML 120ML PO SCH ×3 (05:50→22:42)
[2018-06-29] MEDS: BLOOD SUGAR DIAGNOSTIC STRIP TEST SCH ×4 (05:50→21:00)
[2018-06-29] MEDS: INSULIN LISPRO 100 UNITS/ML SUBCUT SCH ×4 (06:20→21:00)
[2018-06-29 06:40] LABS: HEMATOCRIT. 28.4 % (36.0-48.0); HEMOGLOBIN. 9.5 g/dL (12.0-16.0); MEAN CORPUSCULAR HEMOGLOBIN 33.1 pg (28.0-32.0); MEAN PLATELET VOLUME 7.6 fl (7.4-10.4); PLATELET 259 x1000/uL (130-400); RED BLOOD CELL COUNT 2.87 mill/uL (4.2-5.4); RED CELL DISTRIBUTION WIDTH 15.6 % (11.6-14.6)
[2018-06-29 07:15] LABS: CHLORIDE 100 mEq/L (98-107)
[2018-06-29 07:58] VITALS: BP 118/57
[2018-06-29 08:24] LABS: HEMATOCRIT. 29.5 % (36.0-48.0); MEAN CORPUSCULAR HEMOGLOBIN 33.3 pg (28.0-32.0); MEAN PLATELET VOLUME 7.4 fl (7.4-10.4); PLATELET 266 x1000/uL (130-400); RED BLOOD CELL COUNT 3.01 mill/uL (4.2-5.4); RED CELL DISTRIBUTION WIDTH 15.4 % (11.6-14.6)
[2018-06-29 08:42] LABS: CHLORIDE 101 mEq/L (98-107)
[2018-06-29] MEDS: DOCUSATE SODIUM 100MG CAPSULE PO SCH ×2 (09:00→16:41)
[2018-06-29] MEDS: LIDOCAINE 5% PATCH TOP SCH (09:00)
[2018-06-29 09:50] LABS: PLATELET ESTIMATE NORMAL
[2018-06-29 10:05] LABS: NUCLEATED RED BLOOD CELLS 1 /100 WBC; PLATELET ESTIMATE NORMAL
[2018-06-29] MEDS ORDERED: POTASSIUM CHLORIDE 20MEQ TABLET SR PO NR (10:45)
[2018-06-29] MEDS: TROSPIUM CHLORIDE 20 MG TABLET PO SCH ×2 (10:51→16:41)
[2018-06-29] MEDS: METHENAMINE HIPPURATE 1 GM TABLET PO SCH ×2 (10:52→16:40)
[2018-06-29] MEDS: MYRBETRIQ 50 MG PO SCH (10:52)
[2018-06-29] MEDS: FAMOTIDINE 20MG TABLET PO SCH ×2 (10:53→20:59)
[2018-06-29] MEDS: LAMOTRIGINE 150MG TABLET PO SCH (10:53)
[2018-06-29] MEDS: ASPIRIN 81MG TABLET PO SCH (10:53)
[2018-06-29] MEDS: MULTIVITAMINS,THER W-MINERALS TABLET PO SCH (10:53)
[2018-06-29] MEDS: POTASSIUM CHLORIDE 20MEQ TABLET SR PO SCH (10:53)
[2018-06-29] MEDS: LOSARTAN POTASSIUM 50 MG TABLET PO SCH (10:54)
[2018-06-29] MEDS: CITALOPRAM HYDROBROMIDE 10MG TABLET PO SCH (10:54)
[2018-06-29] MEDS: FUROSEMIDE 20MG TABLET PO SCH (10:54)
[2018-06-29] MEDS: ENOXAPARIN 40MG/0.4ML SYR SUBCUT SCH ×2 (10:56→21:01)
[2018-06-29] MEDS: NYSTATIN POWDER 15GM TOP SCH ×2 (10:57→16:42)
[2018-06-29] MEDS: INSULIN GLARGINE UD 100 UNITS/ML SYR SUBCUT SCH ×2 (11:08→22:42)
[2018-06-29] MEDS: CEFTRIAXONE 1 G PREMIX 50 ML IV SCH (14:05)
[2018-06-29 20:00] VITALS: BP 115/51
[2018-06-29] MEDS: ATORVASTATIN CALCIUM 40MG TABLET PO SCH (20:59)
[2018-06-29] MEDS: RISPERIDONE 1MG TABLET PO SCH (20:59)
[2018-06-29] MEDS: POLYETHYLENE GLYCOL 3350 (17GM) 1 DOSE PACK PO SCH (21:00)
[2018-06-30] MEDS: METHYL SALICYLATE/MENTHOL CREAM 85GM TOP SCH ×3 (06:00→12:00)
[2018-06-30] MEDS: BLOOD SUGAR DIAGNOSTIC STRIP TEST SCH ×2 (06:08→11:15)
[2018-06-30] MEDS: SILDENAFIL CITRATE 20MG TABLET PO SCH ×2 (06:14→13:09)
[2018-06-30] MEDS: THEOPHYLLINE ANHYDROUS 80 MG/15 ML 120ML PO SCH ×2 (06:14→13:07)
[2018-06-30 06:21] LABS: HEMATOCRIT. 28.4 % (36.0-48.0); HEMOGLOBIN. 9.7 g/dL (12.0-16.0); MEAN CORPUSCULAR HEMOGLOBIN 33.6 pg (28.0-32.0); MEAN PLATELET VOLUME 7.5 fl (7.4-10.4); PLATELET 262 x1000/uL (130-400); RED BLOOD CELL COUNT 2.87 mill/uL (4.2-5.4); RED CELL DISTRIBUTION WIDTH 15.5 % (11.6-14.6)
[2018-06-30] MEDS: INSULIN LISPRO 100 UNITS/ML SUBCUT SCH ×2 (06:23→12:44)
[2018-06-30 07:15] LABS: CHLORIDE 100 mEq/L (98-107)
[2018-06-30 08:20] VITALS: BP 109/48
[2018-06-30] MEDS: DOCUSATE SODIUM 100MG CAPSULE PO SCH (08:38)
[2018-06-30] MEDS: LIDOCAINE 5% PATCH TOP SCH (08:38)
[2018-06-30] MEDS: LOSARTAN POTASSIUM 50 MG TABLET PO SCH (08:39)
[2018-06-30] MEDS: ENOXAPARIN 40MG/0.4ML SYR SUBCUT SCH (08:49)
[2018-06-30] MEDS: LAMOTRIGINE 150MG TABLET PO SCH (08:49)
[2018-06-30] MEDS: TROSPIUM CHLORIDE 20 MG TABLET PO SCH (08:50)
[2018-06-30] MEDS: FUROSEMIDE 20MG TABLET PO SCH (08:50)
[2018-06-30] MEDS: NYSTATIN POWDER 15GM TOP SCH (08:50)
[2018-06-30] MEDS: CITALOPRAM HYDROBROMIDE 10MG TABLET PO SCH (08:50)
[2018-06-30] MEDS: POTASSIUM CHLORIDE 20MEQ TABLET SR PO SCH (08:50)
[2018-06-30] MEDS: ASPIRIN 81MG TABLET PO SCH (08:50)
[2018-06-30] MEDS: MULTIVITAMINS,THER W-MINERALS TABLET PO SCH (08:50)
[2018-06-30] MEDS: MYRBETRIQ 50 MG PO SCH (08:50)
[2018-06-30] MEDS: FAMOTIDINE 20MG TABLET PO SCH (08:50)
[2018-06-30] MEDS: METHENAMINE HIPPURATE 1 GM TABLET PO SCH (08:51)
[2018-06-30] MEDS: INSULIN GLARGINE UD 100 UNITS/ML SYR SUBCUT SCH (09:53)
[2018-06-30 10:23] VITALS: BP 109/48
[2018-06-30 15:21] LABS: PLATELET ESTIMATE NORMAL
[2018-06-30] MEDS ORDERED: TDUR2 MT (15:27)
== END 2018-06-30 16:00 | disposition home health service (06) | DRG 73 ==
PROVIDERS: ADMIT Physical Medicine & Rehabilitation Spinal Cord Injury Medicine; ATTEND Internal Medicine Critical Care Medicine
DX: G62.81 Critical illness polyneuropathy (principal); I50.33 Acute on chronic diastolic (congestive) heart failure; E87.1 Hypo-osmolality and hyponatremia; I42.9 Cardiomyopathy, unspecified; J44.1 Chronic obstructive pulmonary disease with (acute) exacerbation; Z68.42 Body mass index [BMI] 45.0-49.9, adult; N39.0 Urinary tract infection, site not specified; F31.81 Bipolar II disorder; E11.42 Type 2 diabetes mellitus with diabetic polyneuropathy; E66.01 Morbid (severe) obesity due to excess calories; E78.5 Hyperlipidemia, unspecified; E83.42 Hypomagnesemia; E87.6 Hypokalemia; I11.0 Hypertensive heart disease with heart failure; I25.10 Atherosclerotic heart disease of native coronary artery without angina pectoris; I35.1 Nonrheumatic aortic (valve) insufficiency; L98.9 Disorder of the skin and subcutaneous tissue, unspecified; M17.0 Bilateral primary osteoarthritis of knee; N39.3 Stress incontinence (female) (male); T38.0X5A Adverse effect of glucocorticoids and synthetic analogues, initial encounter; I27.22 Pulmonary hypertension due to left heart disease; T50.1X5A Adverse effect of loop [high-ceiling] diuretics, initial encounter; B96.1 Klebsiella pneumoniae [K. pneumoniae] as the cause of diseases classified elsewhere; F41.9 Anxiety disorder, unspecified; Z79.4 Long term (current) use of insulin; Z82.49 Family history of ischemic heart disease and other diseases of the circulatory system; Z87.891 Personal history of nicotine dependence; Z87.81 Personal history of (healed) traumatic fracture; Z99.81 Dependence on supplemental oxygen; Y92.89 Other specified places as the place of occurrence of the external cause
CPT/HCPCS: 36415; 71045; 73560; 80048; 80061; 82306; 82607; 82728; 82746; 82962; 83036; 83540; 83550; 83735; 84100; 84134; 84443; 87077; 87186; 93005; 93306; 93970; 94640; 97110; 97116; 97150; 97162; 97167; 97530; 97535; J0696; J1650; J1815; J7050; J7512; J7620; J7626; A5200

== ENCOUNTER 2023-09-30 19:25 | Inpatient (IN) | payer MEDICARE ==
[~2023-09-30] VITALS: Ht 165.1 cm; Wt 101.3 kg
[~2023-09-30 19:25] MED LIST: ACET650S27 PO; ASPI-1497 PO; ATOR40TA70 PO; BO1 TP; CITA10TA88 PO; DOCU-150 PO; FAMO40TA7 PO; HJ10 IJ; IPRA3AMP31 IH; LAMO300T2 PO; LEVVL SQ; LOSA50TA41 PO; METH16TA3 IVP; METH1TAB33 PO; MIRA50TA PO; MULT1TAB22 PO; NYST15PO4 TP; RISP4TAB31 PO; SENN8.8S8 PO; SILD20TA PO; THEO80SO PO; TROS20TA3 PO; ZINC113O4 TP
[2023-09-30 20:00] VITALS: BP_SYST 152; BP_SYST 153; BP_DIAS 73; PULSE 84; RESP 20; TEMP 97.2
[2023-09-30] MEDS ORDERED: SILDENAFIL CITRATE 20MG TABLET PO SCH (21:30)
[2023-09-30] MEDS ORDERED: IPRATROPIUM/ALBUTEROL 0.5-3(2.5)MG/3ML NEB HHN PRN (21:30)
[2023-10-01] MEDS ORDERED: DEXTROSE 50% WATER 50ML SYRINGE IV PRN
[2023-10-01] MEDS ORDERED: BLOOD SUGAR DIAGNOSTIC STRIP TEST SCH
[2023-10-01] MEDS: DOCUSATE SODIUM 100MG CAPSULE PO SCH (00:40)
[2023-10-01] MEDS: INSULIN LISPRO 100 UNITS/ML SUBCUT SCH (00:51)
[2023-10-01] MEDS: ACETAMINOPHEN 325MG TABLET PO PRN (05:18)
[2023-10-01] MEDS: DIPHENHYDRAMINE 25MG CAPSULE PO PRN (05:26)
[2023-10-01] MEDS: BLOOD SUGAR DIAGNOSTIC STRIP TEST SCH (06:46)
[2023-10-01 06:48] LABS: CHLORIDE 97 mEq/L (98-107); POTASSIUM 3.8 mEq/L (3.5-5.1); SODIUM 134 mEq/L (136-145)
[2023-10-01 06:50] LABS: CALCIUM 9.3 mg/dL (8.7-10.4); CARBON DIOXIDE 35 mEq/L (21-32)
[2023-10-01 06:55] LABS: GLUCOSE 242 mg/dL (70-105); UREA NITROGEN BLOOD 10 mg/dL (9-23)
[2023-10-01 06:57] LABS: ALANINE AMINOTRANSFERASE 15 IU/L (10-49); ALBUMIN 3.9 g/dL (3.2-4.8); ASPARTATE AMINOTRANSFERASE 15 IU/L (<34); BILIRUBIN TOTAL 0.2 mg/dL (0.1-1.0); PREALBUMIN 6.9 mg/dl (10.0-40.0); PROTEIN TOTAL 6.3 g/dL (6.0-8.3)
[2023-10-01 07:04] LABS: HEMATOCRIT. 29.7 % (36.0-48.0); HEMOGLOBIN. 9.8 g/dL (12.0-16.0); MEAN CORPUSCULAR HEMOGLOBIN 32.9 pg (28.0-32.0); MEAN CORPUSCULAR VOLUME 99.5 fL (81.0-99.0); MEAN PLATELET VOLUME 7.7 fl (7.4-10.4); PLATELET 368 x1000/uL (130-400); RED BLOOD CELL COUNT 2.99 mill/uL (4.2-5.4); RED CELL DISTRIBUTION WIDTH 16.3 % (11.6-14.6); WHITE BLOOD COUNT 8.9 x1000/uL (4.5-11.0)
[2023-10-01 07:12] LABS: DIFFERENTIAL COMMENT 1
[2023-10-01] MEDS ORDERED: HEPARIN 5000 UNITS/ML VIAL SUBCUT SCH (07:22)
[2023-10-01 08:00] VITALS: BP 128/58; PULSE 78; RESP 18; TEMP 97.3
[2023-10-01] MEDS: ASPIRIN 81MG EC TABLET PO SCH (09:00)
[2023-10-01] MEDS: FAMOTIDINE 20MG TABLET PO SCH (09:00)
[2023-10-01] MEDS ORDERED: INSULIN LISPRO 100 UNITS/ML SUBCUT SCH (09:00)
[2023-10-01] MEDS: CITALOPRAM HYDROBROMIDE 10MG TABLET PO SCH (09:00)
[2023-10-01] MEDS ORDERED: LOSARTAN 50 MG TABLET PO SCH (09:00)
[2023-10-01 09:28] LABS: CHLORIDE 96 mEq/L (98-107); POTASSIUM 3.6 mEq/L (3.5-5.1); SODIUM 136 mEq/L (136-145)
[2023-10-01 09:29] LABS: CARBON DIOXIDE 35 mEq/L (21-32)
[2023-10-01 09:30] LABS: CALCIUM 9.4 mg/dL (8.7-10.4)
[2023-10-01 09:34] LABS: CREATININE 0.9 mg/dL (0.6-1.0); GLUCOSE 201 mg/dL (70-105); IRON 89 ug/dL (50-170)
[2023-10-01 09:35] LABS: PROTEIN TOTAL 6.2 g/dL (6.0-8.3); UREA NITROGEN BLOOD 10 mg/dL (9-23)
[2023-10-01 09:36] LABS: ALANINE AMINOTRANSFERASE 16 IU/L (10-49); ALBUMIN 3.9 g/dL (3.2-4.8); ASPARTATE AMINOTRANSFERASE 14 IU/L (<34)
[2023-10-01 09:37] LABS: BILIRUBIN TOTAL 0.2 mg/dL (0.1-1.0); THYROID STIMULATING HORMONE 1.37 uIU/mL (0.55-4.78)
[2023-10-01 09:39] LABS: FERRITIN 162 ng/mL (10-291); FOLIC ACID (FOLATE) SERUM > 20.00 ng/mL (>5.38); VITAMIN B12 SERUM 992 pg/mL (211-911)
[2023-10-01] MEDS ORDERED: HYDRALAZINE 20MG/ML VIAL IV PRN (14:15)
[2023-10-01] MEDS ORDERED: HYDRALAZINE 10 MG in SODIUM CHLORIDE 0.9% 49.5 ML IV PRN (14:30)
[2023-10-01] MEDS: HEPARIN 5000 UNITS/ML VIAL SUBCUT SCH (14:59)
[2023-10-01] MEDS ORDERED: IPRATROPIUM/ALBUTEROL 0.5-3(2.5)MG/3ML NEB HHN PRN (15:00)
[2023-10-01] MEDS ORDERED: DEXAMETHASONE 10 MG/ML VIAL IV NR (15:30)
[2023-10-01 16:56] LABS: PLATELET ESTIMATE NORMAL
[2023-10-01 20:00] VITALS: BP_SYST 15; BP_SYST 150; BP_DIAS 70; PULSE 78; RESP 20; TEMP 98.4
[2023-10-01] MEDS: ATORVASTATIN CALCIUM 40MG TABLET PO SCH (20:50)
[2023-10-01] MEDS: AMLODIPINE 2.5MG TABLET PO SCH (20:53)
[2023-10-01] MEDS: DEXAMETHASONE 2MG TABLET PO NR (23:05)
[2023-10-02 02:17] VITALS: PULSE 68; RESP 20; O2SAT 97
[2023-10-02] MEDS: IPRATROPIUM/ALBUTEROL 0.5-3(2.5)MG/3ML NEB HHN SCH (02:17)
[2023-10-02 08:00] VITALS: BP 179/75; PULSE 82; RESP 20; TEMP 97
[2023-10-02] MEDS: DEXAMETHASONE 4MG TABLET PO SCH (09:31)
[2023-10-02] MEDS: MUPIROCIN 2% OINT 22GM NS SCH (11:30)
[2023-10-02] MEDS ORDERED: DEXTROSE 50% WATER 50ML SYRINGE IV PRN ×2 (12:00→17:45)
[2023-10-02] MEDS: HYDRALAZINE HCL 10MG TABLET PO NR (12:51)
[2023-10-02] MEDS: INSULIN GLARGINE 100 UNITS/ML SUBCUT NR ×2 (13:32→22:15)
[2023-10-02] MEDS ORDERED: BLOOD SUGAR DIAGNOSTIC STRIP TEST SCH (17:00)
[2023-10-02 17:08] VITALS: PULSE 83; RESP 24; O2SAT 97
[2023-10-02 18:18] LABS: POTASSIUM 4.9 mEq/L (3.5-5.1)
[2023-10-02 18:19] LABS: CALCIUM 9.3 mg/dL (8.7-10.4)
[2023-10-02 18:24] LABS: CREATININE 1.1 mg/dL (0.6-1.0)
[2023-10-02] MEDS: INSULIN GLARGINE 100 UNITS/ML SUBCUT SCH (19:32)
[2023-10-02 20:00] VITALS: BP 148/78; PULSE 91; RESP 18; TEMP 97.5
[2023-10-02] MEDS: INSULIN LISPRO 100 UNITS/ML SUBCUT SCH (21:00)
[2023-10-02] MEDS: BLOOD SUGAR DIAGNOSTIC STRIP TEST SCH (21:00)
[2023-10-02] MEDS: BENZOCAINE/LANOLIN/ALOE VERA SPRAY TOP PRN (21:32)
[2023-10-02 22:00] VITALS: PULSE 76; RESP 20
[2023-10-02] MEDS: INSULIN LISPRO 100 UNITS/ML SUBCUT NR (22:00)
[2023-10-03] MEDS: INSULIN LISPRO 100 UNITS/ML SUBCUT NR ×2 (07:00→16:59)
[2023-10-03 08:00] VITALS: BP 141/39; PULSE 77; RESP 20; TEMP 98.1
[2023-10-03] MEDS: AMLODIPINE 2.5MG TABLET PO SCH (08:36)
[2023-10-03] MEDS: INSULIN GLARGINE 100 UNITS/ML SUBCUT SCH ×2 (08:44→21:50)
[2023-10-03] MEDS ORDERED: INSULIN GLARGINE 100 UNITS/ML SUBCUT SCH (10:00)
[2023-10-03] MEDS: ERGOCALCIFEROL 50000UNITS CAPSULE PO SCH (10:12)
[2023-10-03 12:57] LABS: HEMATOCRIT. 28.6 % (36.0-48.0); HEMOGLOBIN. 9.4 g/dL (12.0-16.0); MEAN CORPUSCULAR HEMOGLOBIN 32.4 pg (28.0-32.0); MEAN CORPUSCULAR VOLUME 98.1 fL (81.0-99.0); MEAN PLATELET VOLUME 7.5 fl (7.4-10.4); PLATELET 392 x1000/uL (130-400); RED BLOOD CELL COUNT 2.92 mill/uL (4.2-5.4); RED CELL DISTRIBUTION WIDTH 16.3 % (11.6-14.6); WHITE BLOOD COUNT 14.1 x1000/uL (4.5-11.0)
[2023-10-03 13:05] LABS: POTASSIUM 3.8 mEq/L (3.5-5.1)
[2023-10-03 13:06] LABS: CALCIUM 9.3 mg/dL (8.7-10.4); DIFFERENTIAL COMMENT 1
[2023-10-03 13:11] LABS: CREATININE 1.1 mg/dL (0.6-1.0)
[2023-10-03 13:30] VITALS: PULSE 94; RESP 24
[2023-10-03 16:01] LABS: ANISOCYTOSIS 1+; PLATELET ESTIMATE NORMAL
[2023-10-03] MEDS ORDERED: DEXTROSE 50% WATER 50ML SYRINGE IV PRN (16:30)
[2023-10-03] MEDS: BLOOD SUGAR DIAGNOSTIC STRIP TEST SCH (16:43)
[2023-10-03] MEDS ORDERED: INSULIN LISPRO 100 UNITS/ML SUBCUT SCH (17:00)
[2023-10-03 20:00] VITALS: BP 111/88; PULSE 86; RESP 20; TEMP 97.5
[2023-10-03] MEDS: MENTHOL/LANOLIN/CALAMINE/ZN OX OINT 71GM TOP SCH (21:00)
[2023-10-04] MEDS: INSULIN LISPRO 100 UNITS/ML SUBCUT SCH (06:56)
[2023-10-04 07:24] VITALS: PULSE 82; RESP 20
[2023-10-04 08:00] VITALS: BP 105/63; PULSE 67; RESP 20; TEMP 96.7
[2023-10-04 09:58] LABS: HEMATOCRIT. 29.9 % (36.0-48.0); HEMOGLOBIN. 9.9 g/dL (12.0-16.0); MEAN CORPUSCULAR HEMOGLOBIN 32.8 pg (28.0-32.0); MEAN CORPUSCULAR HGB CONC 33.1 g/dL (31.0-37.0); MEAN PLATELET VOLUME 7.7 fl (7.4-10.4); PLATELET 466 x1000/uL (130-400); RED BLOOD CELL COUNT 3.02 mill/uL (4.2-5.4); RED CELL DISTRIBUTION WIDTH 16.4 % (11.6-14.6); WHITE BLOOD COUNT 13.6 x1000/uL (4.5-11.0)
[2023-10-04 10:01] LABS: DIFFERENTIAL COMMENT 1
[2023-10-04 10:06] LABS: POTASSIUM 3.5 mEq/L (3.5-5.1)
[2023-10-04 10:08] LABS: CALCIUM 9.2 mg/dL (8.7-10.4)
[2023-10-04 14:59] LABS: NUCLEATED RED BLOOD CELLS 1 /100 WBC
[2023-10-04 15:00] LABS: ANISOCYTOSIS 1+; PLATELET ESTIMATE INCREASED
[2023-10-04 15:22] VITALS: PULSE 78; RESP 20
[2023-10-04 20:00] VITALS: BP 119/52; PULSE 78; RESP 20; TEMP 98.7
[2023-10-04 21:40] VITALS: PULSE 78; RESP 18
[2023-10-05] VITALS (7 sets, daily range): BP systolic 109–148; BP diastolic 50–65; PULSE 67–91; RESP 18–21; TEMP 97.3–97.9; O2SAT 98
[2023-10-06 08:00] VITALS: BP 166/67; PULSE 73; RESP 18; TEMP 97
[2023-10-06 10:50] LABS: HEMATOCRIT. 32.2 % (36.0-48.0); HEMOGLOBIN. 10.5 g/dL (12.0-16.0); MEAN CORPUSCULAR HEMOGLOBIN 32.4 pg (28.0-32.0); MEAN CORPUSCULAR HGB CONC 32.7 g/dL (31.0-37.0); MEAN CORPUSCULAR VOLUME 98.9 fL (81.0-99.0); PLATELET 502 x1000/uL (130-400); RED BLOOD CELL COUNT 3.25 mill/uL (4.2-5.4); RED CELL DISTRIBUTION WIDTH 16.9 % (11.6-14.6); WHITE BLOOD COUNT 19.3 x1000/uL (4.5-11.0)
[2023-10-06 10:53] LABS: CHLORIDE 97 mEq/L (98-107); DIFFERENTIAL COMMENT 1; POTASSIUM 3.7 mEq/L (3.5-5.1); SODIUM 134 mEq/L (136-145)
[2023-10-06 10:54] LABS: CARBON DIOXIDE 30 mEq/L (21-32)
[2023-10-06 10:55] LABS: CALCIUM 9.4 mg/dL (8.7-10.4)
[2023-10-06 10:59] LABS: CREATININE 0.9 mg/dL (0.6-1.0); GLUCOSE 96 mg/dL (70-105); UREA NITROGEN BLOOD 18 mg/dL (9-23)
[2023-10-06 13:49] LABS: ANISOCYTOSIS 1+; PLATELET ESTIMATE INCREASED
[2023-10-06] MEDS: INSULIN LISPRO 100 UNITS/ML SUBCUT SCH (17:00)
[2023-10-06] MEDS ORDERED: INSULIN LISPRO 100 UNITS/ML SUBCUT SCH (17:00)
[2023-10-06 19:31] LABS: CLARITY URINE CLEAR (CLEAR); COLOR URINE YELLOW (YELLOW); GLUCOSE URINE NEGATIVE (NEGATIVE); KETONES URINE NEGATIVE (NEGATIVE); LEUKOCYTE ESTERASE URINE 1+ (NEGATIVE); NITRITE URINE NEGATIVE (NEGATIVE); OCCULT BLOOD URINE NEGATIVE (NEGATIVE); PH URINE >=9.0 (4.5-8.0); PROTEIN URINE 1+ (NEGATIVE); SPECIFIC GRAVITY URINE 1.013 (1.005-1.030); UROBILINOGEN URINE 0.2 E.U./dL (0.2-1.0)
[2023-10-06 20:00] VITALS: BP 141/64; PULSE 78; RESP 20; TEMP 97.9
[2023-10-06 20:01] LABS: BACTERIA URINE TRACE; RBC URINE NONE SEEN /hpf (0-2); SQUAMOUS EPITHELIAL CELL URINE FEW /lpf (RARE/1+)
[2023-10-07 08:00] VITALS: BP 146/68; PULSE 62; RESP 17; TEMP 97.3
[2023-10-07] MEDS: INSULIN LISPRO 100 UNITS/ML SUBCUT SCH (18:06)
[2023-10-07 20:00] VITALS: BP 121/44; PULSE 74; RESP 20; TEMP 97
[2023-10-08 08:00] VITALS: BP 122/64; PULSE 84; RESP 18; TEMP 97
[2023-10-08 20:00] VITALS: BP 133/64; PULSE 75; RESP 18; TEMP 98.1
[2023-10-08] MEDS: LINAGLIPTIN 5MG TABLET PO SCH (21:00)
[2023-10-09 08:00] VITALS: BP 135/68; PULSE 75; RESP 19; TEMP 97.4
[2023-10-09 09:13] LABS: HEMOGLOBIN. 10.4 g/dL (12.0-16.0); MEAN CORPUSCULAR HEMOGLOBIN 33.2 pg (28.0-32.0); MEAN CORPUSCULAR HGB CONC 33.4 g/dL (31.0-37.0); MEAN CORPUSCULAR VOLUME 99.5 fL (81.0-99.0); MEAN PLATELET VOLUME 7.9 fl (7.4-10.4); PLATELET 410 x1000/uL (130-400); RED BLOOD CELL COUNT 3.12 mill/uL (4.2-5.4); RED CELL DISTRIBUTION WIDTH 17.1 % (11.6-14.6); WHITE BLOOD COUNT 18.1 x1000/uL (4.5-11.0)
[2023-10-09 09:20] LABS: CARBON DIOXIDE 30 mEq/L (21-32); CHLORIDE 100 mEq/L (98-107); POTASSIUM 3.8 mEq/L (3.5-5.1); SODIUM 134 mEq/L (136-145)
[2023-10-09 09:22] LABS: DIFFERENTIAL COMMENT 1
[2023-10-09 09:26] LABS: CREATININE 0.9 mg/dL (0.6-1.0); GLUCOSE 109 mg/dL (70-105); UREA NITROGEN BLOOD 20 mg/dL (9-23)
[2023-10-09] MEDS ORDERED: NALOXONE HCL 0.4MG/ML VIAL IV PRN (09:30)
[2023-10-09] MEDS ORDERED: HYDROCODONE/ACETAMINOPHEN 5/325MG TABLET PO PRN (09:30)
[2023-10-09 16:27] LABS: ANISOCYTOSIS 1+; PLATELET ESTIMATE INCREASED
[2023-10-09 20:00] VITALS: BP 134/60; PULSE 74; RESP 20; TEMP 98.6
[2023-10-09 20:10] LABS: BG BASE EXCESS -0.1 mmol/L (-2.0-2.0); BG CARBOXYHEMOGLOBIN 0.1 % (0.5-1.5); BG DEOXYHEMOGLOBIN 2.9 % (0.0-5.0); BG FRACTION INSPIRED OXYGEN 28; BG HCO3 ACT 24.3 mmol/L (22.0-26.0); BG METHEMOGLOBIN 0.1 % (0.0-1.5); BG OXYGEN SATURATION 97.1 % (92.0-98.5); BG OXYHEMOGLOBIN 96.9 % (94.0-97.0); BG PCO2 38.8 mmHg (35.0-45.0); BG PH 7.415 (7.350-7.450); BG SAMPLE SITE RIGHT RADIAL; BG TOTAL HEMOGLOBIN 10.7 g/dL (12.0-18.0); BG VENT MODE NASAL CANNULA
[2023-10-09] MEDS: LORAZEPAM 1MG TABLET PO NR (20:19)
[2023-10-09] MEDS: FAMOTIDINE 20MG/2ML VIAL IV NR (20:19)
[2023-10-10 08:00] VITALS: BP 144/76; PULSE 83; RESP 18; TEMP 97.4
[2023-10-10 08:21] LABS: POTASSIUM 4.1 mEq/L (3.5-5.1)
[2023-10-10 08:22] LABS: CALCIUM 9.2 mg/dL (8.7-10.4)
[2023-10-10 08:27] LABS: CREATININE 1.1 mg/dL (0.6-1.0)
[2023-10-10 08:30] LABS: HEMATOCRIT. 32.5 % (36.0-48.0); HEMOGLOBIN. 10.6 g/dL (12.0-16.0); MEAN CORPUSCULAR HEMOGLOBIN 32.4 pg (28.0-32.0); MEAN CORPUSCULAR HGB CONC 32.7 g/dL (31.0-37.0); MEAN CORPUSCULAR VOLUME 98.9 fL (81.0-99.0); MEAN PLATELET VOLUME 8.3 fl (7.4-10.4); PLATELET 405 x1000/uL (130-400); RED BLOOD CELL COUNT 3.28 mill/uL (4.2-5.4); RED CELL DISTRIBUTION WIDTH 16.7 % (11.6-14.6); WHITE BLOOD COUNT 20.6 x1000/uL (4.5-11.0)
[2023-10-10 08:38] LABS: DIFFERENTIAL COMMENT 1
[2023-10-10 13:38] VITALS: BP 128/59; PULSE 72; RESP 18
[2023-10-10 20:00] VITALS: BP 129/71; PULSE 81; RESP 20; TEMP 98.2
[2023-10-10] MEDS: MUPIROCIN 2% OINT 15GM NS SCH (22:03)
[2023-10-11 01:19] LABS: PLATELET ESTIMATE INCREASED
[2023-10-11 08:14] VITALS: BP 133/57; PULSE 69; RESP 18; TEMP 97.9
[2023-10-11 20:00] VITALS: BP 115/57; PULSE 70; RESP 20; TEMP 98.5
[2023-10-11] MEDS: AMLODIPINE 5MG TABLET PO SCH (22:04)
[2023-10-12 08:00] VITALS: BP 127/71; PULSE 65; RESP 18; TEMP 97.2
[2023-10-12] MEDS: LACTULOSE 20G/30ML UDC PO NR (18:16)
[2023-10-12 20:00] VITALS: BP 128/65; PULSE 68; RESP 18; TEMP 97.2
[2023-10-13 05:42] LABS: POTASSIUM 4.8 mEq/L (3.5-5.1)
[2023-10-13 05:43] LABS: CALCIUM 9.4 mg/dL (8.7-10.4)
[2023-10-13 05:48] LABS: CREATININE 1.2 mg/dL (0.6-1.0)
[2023-10-13 06:56] LABS: HEMATOCRIT. 32.9 % (36.0-48.0); HEMOGLOBIN. 10.9 g/dL (12.0-16.0); MEAN CORPUSCULAR HEMOGLOBIN 32.8 pg (28.0-32.0); MEAN CORPUSCULAR HGB CONC 33.2 g/dL (31.0-37.0); MEAN CORPUSCULAR VOLUME 98.7 fL (81.0-99.0); PLATELET 436 x1000/uL (130-400); RED BLOOD CELL COUNT 3.33 mill/uL (4.2-5.4); WHITE BLOOD COUNT 22.4 x1000/uL (4.5-11.0)
[2023-10-13 07:00] LABS: DIFFERENTIAL COMMENT 1
[2023-10-13 08:00] VITALS: BP 120/61; PULSE 66; RESP 20; TEMP 97
[2023-10-13] MEDS ORDERED: IPRATROPIUM/ALBUTEROL 0.5-3(2.5)MG/3ML NEB HHN PRN (13:45)
[2023-10-13 13:52] LABS: ANISOCYTOSIS 1+; PLATELET ESTIMATE SLIGHTLY INCREASED
[2023-10-13] MEDS: HEPARIN 5000 UNITS/ML VIAL SUBCUT SCH (15:24)
[2023-10-13 20:00] VITALS: BP 126/55; PULSE 75; RESP 20; TEMP 97.2
[2023-10-14 08:00] VITALS: BP 132/61; PULSE 60; RESP 17; TEMP 97.2
[2023-10-14] MEDS: DEXAMETHASONE 4MG TABLET PO SCH (08:32)
[2023-10-14] MEDS: FUROSEMIDE 40MG TABLET PO NR (17:36)
[2023-10-14 20:00] VITALS: BP 123/51; PULSE 74; RESP 18; TEMP 97.9
[2023-10-15 06:51] LABS: HEMATOCRIT. 30.2 % (36.0-48.0); HEMOGLOBIN. 9.9 g/dL (12.0-16.0); MEAN CORPUSCULAR HEMOGLOBIN 32.2 pg (28.0-32.0); MEAN CORPUSCULAR HGB CONC 32.8 g/dL (31.0-37.0); MEAN CORPUSCULAR VOLUME 98.3 fL (81.0-99.0); MEAN PLATELET VOLUME 8.4 fl (7.4-10.4); PLATELET 384 x1000/uL (130-400); RED BLOOD CELL COUNT 3.07 mill/uL (4.2-5.4); RED CELL DISTRIBUTION WIDTH 17.5 % (11.6-14.6); WHITE BLOOD COUNT 18.9 x1000/uL (4.5-11.0)
[2023-10-15 06:53] LABS: DIFFERENTIAL COMMENT 1
[2023-10-15 07:00] LABS: POTASSIUM 4.3 mEq/L (3.5-5.1)
[2023-10-15 07:01] LABS: CALCIUM 9.2 mg/dL (8.7-10.4)
[2023-10-15 07:06] LABS: CREATININE 1.1 mg/dL (0.6-1.0)
[2023-10-15 08:00] VITALS: BP 126/58; PULSE 80; RESP 18; TEMP 97.5
[2023-10-15] MEDS: FUROSEMIDE 40MG TABLET PO SCH (09:46)
[2023-10-15] MEDS ORDERED: NA PHOS,M-B/NA PHOS,DI-BA ENEMA 118ML PR NR (15:00)
[2023-10-15] MEDS ORDERED: NA PHOS,M-B/NA PHOS,DI-BA ENEMA 118ML PR PRN (15:15)
[2023-10-15 17:19] LABS: PLATELET ESTIMATE NORMAL
[2023-10-15 20:00] VITALS: BP 119/58; PULSE 66; RESP 16; TEMP 97.4
[2023-10-16] MEDS: LACTULOSE 20G/30ML UDC PO PRN (07:11)
[2023-10-16 08:00] VITALS: BP 120/66; PULSE 98; RESP 19; TEMP 97.5
[2023-10-16 20:00] VITALS: BP 126/55; PULSE 76; RESP 20; TEMP 97.5
[2023-10-17 07:43] LABS: HEMATOCRIT. 30.1 % (36.0-48.0); HEMOGLOBIN. 10.2 g/dL (12.0-16.0); MEAN CORPUSCULAR HEMOGLOBIN 33.2 pg (28.0-32.0); MEAN CORPUSCULAR HGB CONC 33.9 g/dL (31.0-37.0); MEAN PLATELET VOLUME 8.2 fl (7.4-10.4); PLATELET 389 x1000/uL (130-400); RED BLOOD CELL COUNT 3.07 mill/uL (4.2-5.4); WHITE BLOOD COUNT 20.9 x1000/uL (4.5-11.0)
[2023-10-17 07:47] LABS: POTASSIUM 4.5 mEq/L (3.5-5.1)
[2023-10-17 07:48] LABS: CALCIUM 9.2 mg/dL (8.7-10.4)
[2023-10-17 07:52] LABS: CREATININE 1.2 mg/dL (0.6-1.0)
[2023-10-17 07:53] LABS: DIFFERENTIAL COMMENT 1
[2023-10-17 08:00] VITALS: BP 107/58; PULSE 85; RESP 18; TEMP 96.1
[2023-10-17 15:23] VITALS: BP 107/58; PULSE 80; RESP 18; TEMP 96.7
[2023-10-17 16:10] LABS: ANISOCYTOSIS 1+; PLATELET ESTIMATE NORMAL
[2023-10-17 20:00] VITALS: BP 114/61; PULSE 72; RESP 20; TEMP 97.3
[2023-10-17] MEDS ORDERED: ZINC OXIDE 20% OINT 30GM TOP PRN (21:00)
[2023-10-18 08:00] VITALS: BP 126/53; PULSE 70; RESP 18; TEMP 97.6
[2023-10-18] MEDS ORDERED: LAMO300T2 PO (10:35)
[2023-10-18] MEDS ORDERED: METH1TAB33 PO (10:35)
[2023-10-18] MEDS ORDERED: LOSA50TA41 PO (10:35)
[2023-10-18] MEDS ORDERED: DOCU-150 PO ×2 (10:35→12:42)
[2023-10-18] MEDS ORDERED: MIRA50TA PO (10:35)
[2023-10-18] MEDS ORDERED: P20 MT ×2 (10:35→12:42)
[2023-10-18] MEDS ORDERED: SILD20TA PO (10:35)
[2023-10-18] MEDS ORDERED: LEVVL SQ ×2 (10:35→12:42)
[2023-10-18] MEDS ORDERED: ATOR40TA70 PO ×2 (10:35→12:42)
[2023-10-18] MEDS ORDERED: CITA10TA88 PO ×2 (10:35→12:42)
[2023-10-18] MEDS ORDERED: ASPI-1497 PO ×2 (10:35→12:42)
[2023-10-18] MEDS ORDERED: LANC-493 TP ×2 (10:38→12:42)
[2023-10-18] MEDS ORDERED: NEED-122 SQ ×2 (10:38→12:42)
[2023-10-18 12:16] VITALS: BP 126/53; PULSE 70; TEMP 97.6; O2SAT 100
[2023-10-18 12:41] VITALS: BP 126/70; PULSE 70; TEMP 97.6; O2SAT 100
[2023-10-18] MEDS ORDERED: AMLO5TAB88 PO (12:42)
[2023-10-18] MEDS ORDERED: FAMO20TA8 MT (12:42)
== END 2023-10-18 15:30 | disposition home health service (06) | DRG 70 ==
PROVIDERS: ADMIT Physical Medicine & Rehabilitation Spinal Cord Injury Medicine; ATTEND Internal Medicine Critical Care Medicine
DX: G93.41 Metabolic encephalopathy (principal); I50.23 Acute on chronic systolic (congestive) heart failure; J18.9 Pneumonia, unspecified organism; J44.1 Chronic obstructive pulmonary disease with (acute) exacerbation; N39.0 Urinary tract infection, site not specified; J96.10 Chronic respiratory failure, unspecified whether with hypoxia or hypercapnia; J44.0 Chronic obstructive pulmonary disease with (acute) lower respiratory infection; E22.2 Syndrome of inappropriate secretion of antidiuretic hormone; N17.9 Acute kidney failure, unspecified; E11.40 Type 2 diabetes mellitus with diabetic neuropathy, unspecified; E66.01 Morbid (severe) obesity due to excess calories; L89.159 Pressure ulcer of sacral region, unspecified stage; Z68.38 Body mass index [BMI] 38.0-38.9, adult; R13.10 Dysphagia, unspecified; I48.0 Paroxysmal atrial fibrillation; I27.20 Pulmonary hypertension, unspecified; I11.0 Hypertensive heart disease with heart failure; D63.8 Anemia in other chronic diseases classified elsewhere; D69.6 Thrombocytopenia, unspecified; E87.5 Hyperkalemia; F31.9 Bipolar disorder, unspecified; E78.5 Hyperlipidemia, unspecified; E11.65 Type 2 diabetes mellitus with hyperglycemia; E11.42 Type 2 diabetes mellitus with diabetic polyneuropathy; I25.10 Atherosclerotic heart disease of native coronary artery without angina pectoris; E83.42 Hypomagnesemia; F17.200 Nicotine dependence, unspecified, uncomplicated; G47.33 Obstructive sleep apnea (adult) (pediatric); L30.9 Dermatitis, unspecified; R56.9 Unspecified convulsions; F41.9 Anxiety disorder, unspecified; R41.89 Other symptoms and signs involving cognitive functions and awareness; D72.829 Elevated white blood cell count, unspecified; R41.82 Altered mental status, unspecified; I67.1 Cerebral aneurysm, nonruptured; K57.90 Diverticulosis of intestine, part unspecified, without perforation or abscess without bleeding; R26.9 Unspecified abnormalities of gait and mobility; T38.0X5A Adverse effect of glucocorticoids and synthetic analogues, initial encounter; Z87.01 Personal history of pneumonia (recurrent); Y92.89 Other specified places as the place of occurrence of the external cause; Z99.81 Dependence on supplemental oxygen; Z88.1 Allergy status to other antibiotic agents; Z83.3 Family history of diabetes mellitus
CPT/HCPCS: 36415; 36600; 71045; 74018; 80048; 80053; 81003; 82306; 82375; 82607; 82728; 82746; 82805; 82962; 83036; 83540; 83550; 84134; 84443; 85025; 92523; 92610; 94640; 97110; 97116; 97150; 97162; 97166; 97530; 97535; 97542; A6261; C1893; J1100; J1644; J1815; J3490; J8540; Q0163